=== PATIENT | female | born 1955 | race Caucasian/White ===

== ENCOUNTER → 2016-06-01 | Outpatient (CLI) | payer MEDICARE, MEDICAID ==
[~2016-06-01] MED LIST: ACET-789 PO; ASPI-999 PO; AZIT250T5; Antibiotic; CEFD300C3 PO; CEPH500C; CHOL200041 PO; CLOB20TA PO; Fish Oil PO; HYDR-3583 PO; LACO200T2 PO; LORA1TAB PO; NIAC500T24 PO; OXYC-12 PO; PHN100C PO; PRD10T; RT-ALBUINH; RT-ALBUINH IH; TRAM50TA2 PO; ZONI100C11 PO
--- OUTSIDE RECORDS SUMMARY | 2016-06-01 09:08 | XMS REPORT | Continuity of Care Document ---
Author Author [facility] Organization [facility] Address Unknown Phone Unavailable Allergies Active Description Code Type Severity Reaction Onset Reported/Identified Relationship to Patient Clinical Status Yes No Known Drug Allergies [id number] Drug Allergy Unknown N/ A 06/05/2010 Yes divalproex sodium Drug Allergy Moderate VOMITS 05/02/2013 Yes divalproex sodium [id number] Drug Allergy Unknown NAUSEA 05/04/2015 Medications Problems Date Dx Coded Attending Type Code Diagnosis Diagnosed By 02/24/2010 Ot 873.0 02/24/2010 Ot E000.8 02/24/2010 Ot E849.0 02/24/2010 Ot E917.4 02/24/2010 Ot V06.1 03/05/2010 Ot V58.32 06/07/2010 Ot 317 06/07/2010 Ot 345.90 06/07/2010 Ot 824.0 06/07/2010 Ot 837.0 06/07/2010 Ot 845.03 06/07/2010 Ot E849.0 06/07/2010 Ot E888.9 08/04/2010 Ot 780.39 08/04/2010 Ot V54.01 08/04/2010 Ot V58.69 11/10/2010 Ot V58.69 11/10/2010 Ot V58.83 07/31/2011 Ot 780.39 07/31/2011 Ot 910.0 07/31/2011 Ot 912.0 07/31/2011 Ot E000.8 07/31/2011 Ot E849.0 07/31/2011 Ot E888.9 09/28/2011 Ot 780.39 09/28/2011 Ot V58.69 03/20/2012 Ot 923.20 03/20/2012 Ot 959.4 03/20/2012 Ot E000.8 03/20/2012 Ot E849.0 03/20/2012 Ot E888.9 03/22/2012 Ot 729.5 03/22/2012 Ot 923.20 03/22/2012 Ot E000.8 03/22/2012 Ot E928.9 04/25/2013 ZOILA DILLONZEYNEP Ot 924.20 04/25/2013 ZOILA DILLON, ZEYNEP Tomlinson Ot 959.7 04/25/2013 ZOILA DILLON, ZEYNEP Tomlinson Ot E000.8 04/25/2013 ZOILA DILLONZEYNEP Ot E849.0 04/25/2013 ZOILA DILLONZEYNEP Ot E888.9 02/06/2014 JOHNATHAN DOTY, SOPHIA K Ot 780.39 02/06/2014 JOHNATHAN DOTY, SOPHIA K Ot V58.69 02/13/2014 JOHNATHAN DOTY, SOPHIA K Ot 780.39 02/13/2014 JOHNATHAN DOTY, SOPHIA K Ot V58.69 10/30/2014 JOHNATHAN DOTY, SOPHIA K Ot 345.41 11/03/2014 JOHNATHAN DOTY, SOPHIA K Ot 345.41 11/07/2014 JOHNATHAN DOTY, SOPHIA K Ot 345.41 11/07/2014 JOHNATHAN DOTY, SOPHIA K Ot 345.41 11/23/2014 GREG NIEVES, SASCHA K Ot 780.39 11/23/2014 GREG , SASCHA K Ot 923.10 11/23/2014 GREG , SASCHA K Ot 959.3 11/23/2014 GREG , SASCHA K Ot E000.8 11/23/2014 [place] , SASCHA K Ot E888.9 12/21/2014 KEITH DOTY, ADRIAN Wagner Ot 345.90 12/21/2014 ADRIAN PARKER MD Ot 873.0 12/21/2014 ADRIAN PARKER MD Ot E000.8 12/21/2014 ADRIAN PARKER MD Ot E849.0 12/21/2014 ADRIAN PARKER MD Ot E888.9 12/22/2014 TWAN SILVA APRN Ot 345.90 12/22/2014 TWAN SILVA COOK SHORT ORDER Ot 873.0 12/22/2014 TWAN SILVA COOK SHORT ORDER Ot E000.8 12/22/2014 TWAN SILVA COOK SHORT ORDER Ot E888.9 12/24/2014 MARY FISCHER DO Ot V76.12 12/30/2014 IOANA DOTY, LYLE Ngo Ot Z48.02 12/31/2014 MARY FISCHER DO Ot V76.12 03/24/2015 Ot V76.12 03/24/2015 Ot 553.3 03/24/2015 Ot 787.3 03/24/2015 Ot 824.0 03/24/2015 Ot E000.8 03/24/2015 Ot E849.0 03/24/2015 Ot E888.9 03/24/2015 Ot V72.83 03/24/2015 Ot V74.8 03/24/2015 Ot V58.69 03/24/2015 Ot V58.83 03/24/2015 Ot 780.39 03/24/2015 Ot 780.39 03/24/2015 Ot 780.39 03/24/2015 Ot V58.69 03/24/2015 Ot 345.91 03/24/2015 Ot 345.91 03/24/2015 Ot 959.2 03/24/2015 Ot E000.8 03/24/2015 Ot E849.0 03/24/2015 Ot E888.9 03/24/2015 Ot 345.90 03/24/2015 MARY FISCHER DO Ot 793.19 03/24/2015 HEMALATHALENDER MARY NIEVES Ot V72.83 03/24/2015 SOPHIA MANN MD Ot 780.39 03/24/2015 SOPHIA MANN MD Ot V58.69 03/24/2015 SOPHIA MANN MD Ot 345.41 03/24/2015 SOPHIA MANN MD Ot 345.41 03/24/2015 MARY FISCHER DO Ot V76.12 04/17/2015 GELLENDER DO, MARY Escobedo Ot S20.90XA 04/17/2015 GELLENDER DO, MARY Escobedo Ot W19.XXXA 04/17/2015 GELLENDER DO, MARY Escobedo Ot Y99.8 04/22/2015 GELLENDER DO, MARY Escobedo Ot S20.90XA 04/22/2015 GELLENDER DO, MARY Escobedo Ot W19.XXXA 04/22/2015 GELLENDER DO, MARY Escobedo Ot Y99.8 05/04/2015 Ot 780.39 05/04/2015 Ot V58.69 05/04/2015 ZEYNEP PETTIT Ot J18.9 05/04/2015 ZOILA DILLON ZEYNEP Tomlinson Ot M47.812 05/04/2015 ZOILA DILLON ZEYNEP Tomlinson Ot M50.32 05/04/2015 ZOILA DILLON ZEYNEP Tomlinson Ot S01.01XA 05/04/2015 ZOILA DILLON ZEYNEP Tomlinson Ot S40.012A 05/04/2015 ZOILA DILLON ZEYNEP Tomlinson Ot W01.0XXA 05/04/2015 ZOILA DILLON ZEYNEP Tomlinson Ot Y92.013 05/04/2015 ZOILA DILLON ZEYNEP Tomlinson Ot Y99.8 05/22/2015 MARY FISCHER DO Ot J18.9 06/04/2015 MARY FISCHER DO Ot J18.9 Procedures Code Description Performed By Performed On . IMPLANT OR REPLACEMENT OF PERIPHERAL NEUROSTIMULAT Rob Urias MD 05/03/2013 86.96 INSERT OR REPLACE OF OTH NEUROSTIMULATOR PULSE GEN Rob Urias MD 05/03/2013 Results Test Result Range URINALYSIS, ROUTINE - 05/03/13 07:48 UA LEUKOCYTE ESTERASE DIPSTICK NEGATIVE NEGATIVE UA NITRITE DIPSTICK NEGATIVE NEGATIVE UA PROTEIN DIPSTICK NEGATIVE NEGATIVE UA GLUCOSE DIPSTICK NEGATIVE NEGATIVE UA KETONE DIPSTICK NEGATIVE NEGATIVE UA UROBILINOGEN DIPSTICK NORMAL NORMAL UA BILIRUBIN DIPSTICK NEGATIVE NEGATIVE UA BLOOD DIPSTICK TRACE NEGATIVE UA BACTERIA 1+ NEGATIVE UA EPITHELIAL CELLS 2+ epi/hpf 0 - 1+ UA RBC 0-3 rbc/hpf 0 - 3 UA VOLUME FOR EXAM 12.0 mL (12mL STD) UA WBC 0-1 wbc/hpf 0 - 5 UA SPECIFIC GRAVITY 1.013 1.015-1.025 UR PH 6.5 5.0-7.0 Encounters ACCT No. Visit Date/Time Discharge Status Pt. Type Provider Facility Loc./Unit Complaint [id number] 05/03/2013 05:51:00 2013 13:45:00 DIS Outpatient Adonay DOTY, [facility] NABIL
[2016-06-01 09:19] LABS: MEAN PLATELET VOLUME 9.4 FL (7.4-10.4); RED BLOOD COUNT 4.9 10^6/uL (4.35-5.85); RED CELL DISTRIBUTION WIDTH 12.8 % (10.0-14.5); WHITE BLOOD COUNT 5.3 10^3/uL (4.3-11.0)
[2016-06-01 09:41] LABS: ALANINE AMINOTRANSFERASE 17 U/L (0-55); ALBUMIN 4.3 G/DL (3.2-4.5); ANION GAP 8 MMOL/L (5-14); ASPARTATE AMINO TRANSFERASE 20 U/L (5-34); BILIRUBIN,TOTAL 0.5 MG/DL (0.1-1.0); BLOOD UREA NITROGEN 6 MG/DL (7-18); BUN/CREATININE RATIO 8; CALCIUM 9.3 MG/DL (8.5-10.1); CARBON DIOXIDE 27 MMOL/L (21-32); CHLORIDE 101 MMOL/L (98-107); CREATININE SERUM 0.75 MG/DL (0.60-1.30); GFR ESTIMATED > 60; GLUCOSE 90 MG/DL (70-105); POTASSIUM 4.4 MMOL/L (3.6-5.0); SODIUM 136 MMOL/L (135-145); TOTAL PROTEIN 6.8 G/DL (6.4-8.2)
== END ==
LOC: LAB 09:03
PROVIDERS: ATTEND Psychiatry & Neurology Neurology
DX: R56.9 Unspecified convulsions (principal)
CPT/HCPCS: 36415; 80053; 85027

== ENCOUNTER → 2017-07-05 | Outpatient (CLI) | payer MEDICARE, MEDICAID ==
[~2017-07-05] MED LIST changes: +AZIT250T12; -AZIT250T5
[2017-07-05 09:00] LABS: HEMOGLOBIN 15.2 G/DL (11.5-16.0); MEAN PLATELET VOLUME 9.2 FL (7.4-10.4); RED BLOOD COUNT 4.81 10^6/uL (4.35-5.85); RED CELL DISTRIBUTION WIDTH 13.5 % (10.0-14.5); WHITE BLOOD COUNT 5.7 10^3/uL (4.3-11.0)
[2017-07-05 09:23] LABS: ALANINE AMINOTRANSFERASE 18 U/L (0-55); ALBUMIN 4.4 GM/DL (3.2-4.5); ALKALINE PHOSPHATASE 99 U/L (40-136); BILIRUBIN,TOTAL 0.5 MG/DL (0.1-1.0); BUN/CREATININE RATIO 15; CALCIUM 9.5 MG/DL (8.5-10.1); CARBON DIOXIDE 24 MMOL/L (21-32); CHLORIDE 100 MMOL/L (98-107); CREATININE SERUM 0.72 MG/DL (0.60-1.30); GFR ESTIMATED > 60; GLUCOSE 85 MG/DL (70-105); SODIUM 134 MMOL/L (135-145); TOTAL PROTEIN 6.8 GM/DL (6.4-8.2)
== END ==
LOC: LAB 08:43
PROVIDERS: ATTEND Psychiatry & Neurology Neurology
DX: R56.9 Unspecified convulsions (principal); Z79.899 Other long term (current) drug therapy
CPT/HCPCS: 36415; 80053; 85027

== ENCOUNTER 2017-12-23 23:16 | Inpatient (IN) | payer MEDICARE, MEDICAID ==
[~2017-12-23] VITALS: Ht 157.5 cm; Wt 68.9 kg
[2017-12-23] MEDS ORDERED: fentaNYL INJECTION 100 MCG/2 ML AMP IVP STA (23:29)
[2017-12-24] MEDS ORDERED: fentaNYL INJECTION 100 MCG/2 ML AMP IVP STA (00:10)
--- OUTSIDE RECORDS SUMMARY | 2017-12-24 00:50 | XMS REPORT ---
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 Name Role Phone AGUSTIN DODD Unavailable PROBLEMS Unknown Problems ALLERGIES Substance Reaction Event Type Date Status Depakote Unknown Drug Allergy Dec, Active ENCOUNTERS Encounter Location Date Diagnosis [facility] [address] [facility] [id number] [place], [place] [id number] Dec, Dental examination Z01.20 and Dental caries K02.9 IMMUNIZATIONS No Known Immunizations SOCIAL HISTORY Never Assessed REASON FOR VISIT madhav PLAN OF CARE Activity Details Follow Up prn Reason: VITAL SIGNS MEDICATIONS Medication Instructions Dosage Frequency Start Date End Date Duration Status Aspirin Active D3 Adult Active Fish Oil Active [id number] Active Aptiom Active Onfi Active RESULTS No Results PROCEDURES Procedure Date Ordered Result Body Site LTD ORAL EVALUATION - PROBLEM FOCUS Jan 24, 2017 PANORAMIC FILM SEE ALSO CODE 69108 Jan 24, 2017 EXTRAC ERUPTED TOOTH/EXPOSED ROOT Jan 24, 2017 INSTRUCTIONS MEDICATIONS ADMINISTERED No Known Medications MEDICAL (GENERAL) HISTORY Type Description Date Medical History Fainting, Seizures, Epilipsy Medical History Head, Neck, or Jaw injury Medical History Surgery requiring rods, pins, or screws Surgical History Implant 05/03/2013
--- OUTSIDE RECORDS SUMMARY | 2017-12-24 00:51 | XMS REPORT | Continuity of Care Document ---
Author Author [facility] Organization [facility] Address Unknown Phone Unavailable Allergies Active Description Code Type Severity Reaction Onset Reported/Identified Relationship to Patient Clinical Status Yes No Known Drug Allergies [id number] Drug Allergy Unknown N/A 06/05/2010 Yes divalproex sodium Drug Allergy Moderate VOMITS 05/02/2013 Yes divalproex sodium [id number] Drug Allergy Unknown NAUSEA 05/04/2015 Medications There is no data. Problems Date Dx Coded Attending Type Code Diagnosis Diagnosed By 02/24/2010 Ot 873.0 02/24/2010 Ot E000.8 02/24/2010 Ot E849.0 02/24/2010 Ot E917.4 02/24/2010 Ot V06.1 03/05/2010 Ot V58.32 06/07/2010 Ot 317 MILD MENTAL RETARDATION 06/07/2010 Ot 345.90 EPILEPSY UNSPEC W/O MENTION INTRACTABLE 06/07/2010 Ot 824.0 FX MEDIAL MALLEOLUS-CLOS 06/07/2010 Ot 837.0 DISLOCATION ANKLE-CLOSED 06/07/2010 Ot 845.03 SPRAIN DISTAL TIBIOFIBUL 06/07/2010 Ot E849.0 ACCIDENT IN HOME 06/07/2010 Ot E888.9 FALL NOS 08/04/2010 Ot 780.39 08/04/2010 Ot V54.01 08/04/2010 Ot V58.69 11/10/2010 Ot V58.69 11/10/2010 Ot V58.83 07/31/2011 Ot 780.39 OTHER CONVULSIONS 07/31/2011 Ot 910.0 ABRASION HEAD 07/31/2011 Ot 912.0 ABRASION SHOULDER/ARM 07/31/2011 Ot E000.8 OTHER EXTERNAL CAUSE STATUS 07/31/2011 Ot E849.0 ACCIDENT IN HOME 07/31/2011 Ot E888.9 FALL NOS 09/28/2011 Ot 780.39 OTHER CONVULSIONS 09/28/2011 Ot V58.69 OTH MED,LT, CURRENT USE 03/20/2012 Ot 923.20 CONTUSION OF HAND(S) 03/20/2012 Ot 959.4 HAND INJURY NOS 03/20/2012 Ot E000.8 OTHER EXTERNAL CAUSE STATUS 03/20/2012 Ot E849.0 ACCIDENT IN HOME 03/20/2012 Ot E888.9 FALL NOS 03/22/2012 Ot 729.5 PAIN IN LIMB 03/22/2012 Ot 923.20 CONTUSION OF HAND(S) 03/22/2012 Ot E000.8 OTHER EXTERNAL CAUSE STATUS 03/22/2012 Ot E928.9 ACCIDENT NOS 04/25/2013 ZEYNEP PETTIT Ot 924.20 CONTUSION OF FOOT 04/25/2013 ZEYNEP PETTIT Ot 959.7 LOWER LEG INJURY NOS 04/25/2013 ZEYNEP PETTIT Ot E000.8 OTHER EXTERNAL CAUSE STATUS 04/25/2013 ZEYNEP PETTIT Ot E849.0 ACCIDENT IN HOME 04/25/2013 ZEYNEP PETTIT Ot E888.9 FALL NOS 02/06/2014 SOPHIA MANN MD Ot 780.39 02/06/2014 SOPHIA MANN MD Ot V58.69 02/13/2014 SOPHIA MANN MD Ot 780.39 02/13/2014 SOPHIA MANN MD Ot V58.69 10/30/2014 SOPHIA MANN MD Ot 345.41 11/03/2014 SOPHIA MANN MD Ot 345.41 11/07/2014 SOPHIA MANN MD Ot 345.41 11/07/2014 SOPHIA MANN MD Ot 345.41 11/23/2014 SASCHA GARZA DO Ot 780.39 OTHER CONVULSIONS 11/23/2014 SASCHA GARZA DO Ot 923.10 CONTUSION OF FOREARM 11/23/2014 SASCHA GARZA DO Ot 959.3 ELB/FOREARM/WRST INJ NOS 11/23/2014 SASCHA GARZA DO Ot E000.8 OTHER EXTERNAL CAUSE STATUS 11/23/2014 SASCHA GARZA DO Ot E888.9 FALL NOS 12/21/2014 ADRIAN PARKER MD Ot 345.90 EPILEPSY UNSPEC W/O MENTION INTRACTABLE 12/21/2014 ADRIAN PARKER MD Ot 873.0 OPEN WOUND OF SCALP 12/21/2014 ADRIAN PARKER MD Ot E000.8 OTHER EXTERNAL CAUSE STATUS 12/21/2014 ADRIAN PARKER MD Ot E849.0 ACCIDENT IN HOME 12/21/2014 ADRIAN PARKER MD Ot E888.9 FALL NOS 12/22/2014 TWAN SILVA ROUSTABOUT HEAD Ot 345.90 EPILEPSY UNSPEC W/O MENTION INTRACTABLE 12/22/2014 TWAN SILVA ROUSTABOUT HEAD Ot 873.0 OPEN WOUND OF SCALP 12/22/2014 TWAN SILVA ROUSTABOUT HEAD Ot E000.8 OTHER EXTERNAL CAUSE STATUS 12/22/2014 TWAN SILVA ROUSTABOUT HEAD Ot E888.9 FALL NOS 12/24/2014 MARY FISCHER DO Ot V76.12 12/30/2014 IOANA DOTY, LYLE Ngo Ot Z48.02 ENCOUNTER FOR REMOVAL OF SUTURES 12/31/2014 MARY FISCHER DO Ot V76.12 03/24/2015 [...] 03/24/2015 MARY FISCHER DO Ot 793.19 03/24/2015 MARY FISCHER DO Ot V72.83 03/24/2015 SOPHIA MANN MD Ot 780.39 03/24/2015 SOPHIA MANN MD Ot V58.69 03/24/2015 JOHNATHAN DOTY, SOPHIA K Ot 345.41 03/24/2015 JOHNATHAN DOTY, SOPHIA Wagner Ot 345.41 03/24/2015 GELLENDER DO, MARY Escobedo Ot V76.12 04/17/2015 GELLENDER DO, MARY Escobedo Ot S20.90XA 04/17/2015 GELLENDER DO, MARY Escobedo Ot W19.XXXA 04/17/2015 GELLENDER DO, MARY Escobedo Ot Y99.8 04/22/2015 GELLENDER DO, MARY Escobedo Ot S20.90XA 04/22/2015 GELLENDER DO, MARY Escobedo Ot W19.XXXA 04/22/2015 GELLENDER DO, MARY Escobedo Ot Y99.8 05/04/2015 Ot 780.39 05/04/2015 Ot V58.69 05/04/2015 ZEYNEP PETTIT Ot J18.9 PNEUMONIA, UNSPECIFIED ORGANISM 05/04/2015 ZEYNEP PETTIT Ot M47.812 SPONDYLOSIS W/O MYELOPATHY OR RADICULOPA 05/04/2015 ZEYNEP PETTIT Ot M50.32 OTHER CERVICAL DISC DEGENERATION, MID-CE 05/04/2015 ZEYNEP PETTIT Ot S01.01XA LACERATION WITHOUT FOREIGN BODY OF SCALP 05/04/2015 ZEYNEP PETTIT Ot S40.012A CONTUSION OF LEFT SHOULDER, INITIAL ENCO 05/04/2015 ZEYNEP PETTIT Ot W01.0XXA FALL SAME LEV FROM SLIP/TRIP W/O STRIKE 05/04/2015 ZEYNEP PETTIT Ot Y92.013 BEDROOM OF SINGLE-FAMILY (PRIVATE) HOUSE 05/04/2015 ZEYNEP PETTIT Ot Y99.8 OTHER EXTERNAL CAUSE STATUS 05/10/2015 SASCHA GARZA DO Ot S01.01XD LACERATION WITHOUT FOREIGN BODY OF SCALP 05/22/2015 GELLENDER DO, MARY Escobedo Ot J18.9 06/04/2015 GELLENDER , MARY Escobedo Ot J18.9 06/01/2016 Ot 780.39 OTHER CONVULSIONS 06/01/2016 Ot 780.39 OTHER CONVULSIONS 06/01/2016 Ot 780.39 OTHER CONVULSIONS 06/01/2016 Ot V58.69 OT MED,LT, CURRENT USE 06/01/2016 Ot 345.91 EPILEPSY UNSPECIFIED W/ INTRACTABLE EPIL 06/01/2016 Ot 345.91 EPILEPSY UNSPECIFIED W/ INTRACTABLE EPIL 06/01/2016 Ot 959.2 SHLDR/UPPER ARM INJ NOS 06/01/2016 Ot E000.8 OTHER EXTERNAL CAUSE STATUS 06/01/2016 Ot E849.0 ACCIDENT IN HOME 06/01/2016 Ot E888.9 FALL NOS 06/01/2016 Ot 345.90 EPILEPSY UNSPEC W/O MENTION INTRACTABLE 06/01/2016 AALIYAH NIEVESMARY Ot 793.19 OTHER NONSPECIFIC ABNORMAL FINDING OF ELENA 06/01/2016 AALIYAH NIEVESMARY Ot V72.83 EXAM PRE-OPERATIVE NEC 06/01/2016 SOPHIA MANN MD Ot 780.39 OTHER CONVULSIONS 06/01/2016 SOPHIA MANN MD Ot V58.69 OTH MED,LT,CURRENT USE 06/01/2016 SOPHIA MANN MD Ot 345.41 FOC PART EPILEPSY/SYND W COMP PART SEIZU 06/01/2016 SOPHIA MANN MD Ot 345.41 FOC PART EPILEPSY/SYND W COMP PART SEIZU 06/01/2016 AALIYAH NIEVESMARY Ot V76.12 OTH SCREEN MAMMO-MALIGN NEOPLASM OF MARKO 06/01/2016 AALIYAH NIEVESMARY Ot S20.90XA UNSP SUPERFICIAL INJURY OF UNSP PARTS OF 06/01/2016 AALIYAH NIEVESMARY Ot W19.XXXA UNSPECIFIED FALL, INITIAL ENCOUNTER 06/01/2016 AALIYAH MARY NIEVES Ot Y99.8 OTHER EXTERNAL CAUSE STATUS 06/01/2016 AALIYAH NIEVESMARY Ot J18.9 PNEUMONIA, UNSPECIFIED ORGANISM 06/22/2016 SOPHIA MANN MD Ot R56.9 UNSPECIFIED CONVULSIONS 06/29/2016 SOPHIA MANN MD Ot R56.9 UNSPECIFIED CONVULSIONS 07/05/2017 Ot 959.2 SHLDR/UPPER ARM INJ NOS 07/05/2017 Ot E000.8 OTHER EXTERNAL CAUSE STATUS 07/05/2017 Ot E849.0 ACCIDENT IN HOME 07/05/2017 Ot E888.9 FALL NOS 07/05/2017 Ot 345.90 EPILEPSY UNSPEC W/O MENTION INTRACTABLE 07/05/2017 MARY FISCHER DO Ot 793.19 OTHER NONSPECIFIC ABNORMAL FINDING OF ELENA 07/05/2017 MARY FISCHER DO Ot V72.83 EXAM PRE-OPERATIVE NEC 07/05/2017 SOPHIA MANN MD Ot 780.39 OTHER CONVULSIONS 07/05/2017 SOPHIA MANN MD, Ot V58.69 OTH MED,LT,CURRENT USE 07/05/2017 SOPHIA MANN MD Ot 345.41 FOC PART EPILEPSY/SYND W COMP PART SEIZU 07/05/2017 SOPHIA MANN MD Ot 345.41 FOC PART EPILEPSY/SYND W COMP PART SEIZU 07/05/2017 MARY FISCHER DO Ot V76.12 OTH SCREEN MAMMO-MALIGN NEOPLASM OF MARKO 07/05/2017 MARY FISCHER DO Gregg Ot S20.90XA UNSP SUPERFICIAL INJURY OF UNSP PARTS OF 07/05/2017 MARY FISCHER DO Ot W19.XXXA UNSPECIFIED FALL, INITIAL ENCOUNTER 07/05/2017 MARY FISCHER DO Ot Y99.8 OTHER EXTERNAL CAUSE STATUS 07/05/2017 MARY FISCHER DO Ot J18.9 PNEUMONIA, UNSPECIFIED ORGANISM 07/05/2017 SOPHIA MANN MD Ot R56.9 UNSPECIFIED CONVULSIONS 07/06/2017 SOPHIA MANN MD Ot R56.9 UNSPECIFIED CONVULSIONS 07/06/2017 SOPHIA MANN MD Ot Z79.899 OTHER RETIREMENT (CURRENT) DRUG THERAPY 07/25/2017 SOPHIA MANN MD Ot R56.9 UNSPECIFIED CONVULSIONS 07/25/2017 SOPHIA MANN MD Ot Z79.899 OTHER RETIREMENT (CURRENT) DRUG THERAPY 08/02/2017 SOPHIA MANN MD Ot R56.9 UNSPECIFIED CONVULSIONS 08/02/2017 SOPHIA MANN MD Ot Z79.899 OTHER MANAGER ACQUISITION (CURRENT) DRUG THERAPY Procedures Code Description Performed By Performed On 79.06 CL FX REDUC-TIBIA/FIBULA 06/05/2010 79.36 OP RED-INT FIX TIB/FIBUL 06/06/2010 79.87 OPEN REDUC-ANKLE DISLOC 06/06/2010 04.92 IMPLANT OR REPLACEMENT OF PERIPHERAL NEUROSTIMULAT Adonay DOTY, Rob Calixto 86.96 INSERT OR REPLACE OF [facility] NEUROSTIMULATOR PULSE GEN Rob Urias MD 05/03/2013 [...] GRAVITY 1.013 1.015-1.025 UR PH 6.5 5.0-7.0 Automated blood complete blood count (hemogram) panel - 06/01/16 09:09 Blood leukocytes automated count (number/volume) 5.3 10*3/uL 4.3-11.0 Blood erythrocytes automated count (number/volume) 4.90 10*6/uL 4.35-5.85 Venous blood hemoglobin measurement (mass/volume) 15.5 g/dL 11.5-16.0 Blood hematocrit (volume fraction) 46 % 35-52 Automated erythrocyte mean corpuscular volume 94 [foz_us] 80-99 Automated erythrocyte mean corpuscular hemoglobin (mass per erythrocyte) 32 pg 25-34 Automated erythrocyte mean corpuscular hemoglobin concentration measurement ( mass/volume) 34 g/dL 32-36 Automated erythrocyte distribution width ratio 12.8 % 10.0-14.5 Automated blood platelet count (count/volume) 243 10*3/uL 130-400 Automated blood platelet mean volume measurement 9.4 [foz_us] 7.4-10.4 Comprehensive metabolic panel - 06/01/16 09:09 Serum or plasma sodium measurement (moles/volume) 136 mmol/L 135-145 Serum or plasma potassium measurement (moles/volume) 4.4 mmol/L 3.6-5.0 Serum or plasma chloride measurement (moles/volume) 101 mmol/L 98-107 Carbon dioxide 27 mmol/L 21-32 Serum or plasma anion gap determination (moles/volume) 8 mmol/L 5-14 Serum or plasma urea nitrogen measurement (mass/volume) 6 mg/dL 7-18 Serum or plasma creatinine measurement (mass/volume) 0.75 mg/dL 0.60-1.30 Serum or plasma urea nitrogen/creatinine mass ratio 8 NRG Serum or plasma creatinine measurement with calculation of estimated glomerular filtration rate > NRG Serum or plasma glucose measurement (mass/volume) 90 mg/dL 70-105 Serum or plasma calcium measurement (mass/volume) 9.3 mg/dL 8.5-10.1 Serum or plasma total bilirubin measurement (mass/volume) 0.5 mg/dL 0.1-1.0 Serum or plasma alkaline phosphatase measurement (enzymatic activity/volume) 94 U/L 40-136 Serum or plasma aspartate aminotransferase measurement (enzymatic activity/ volume) 20 U/L 5-34 Serum or plasma alanine aminotransferase measurement (enzymatic activity/volume ) 17 U/L 0-55 Serum or plasma protein measurement (mass/volume) 6.8 g/dL 6.4-8.2 Serum or plasma albumin measurement (mass/volume) 4.3 g/dL 3.2-4.5 Automated blood complete blood count (hemogram) panel - 07/05/17 08:57 Blood leukocytes automated count (number/volume) 5.7 10*3/uL 4.3-11.0 Blood erythrocytes automated count (number/volume) 4.81 10*6/uL 4.35-5.85 Venous blood hemoglobin measurement (mass/volume) 15.2 g/dL 11.5-16.0 Blood hematocrit (volume fraction) 45 % 35-52 Automated erythrocyte mean corpuscular volume 93 [foz_us] 80-99 Automated erythrocyte mean corpuscular hemoglobin (mass per erythrocyte) 32 pg 25-34 Automated erythrocyte mean corpuscular hemoglobin concentration measurement ( mass/volume) 34 g/dL 32-36 Automated erythrocyte distribution width ratio 13.5 % 10.0-14.5 Automated blood platelet count (count/volume) 248 10*3/uL 130-400 Automated blood platelet mean volume measurement 9.2 [foz_us] 7.4-10.4 Comprehensive metabolic panel - 07/05/17 08:57 Serum or plasma sodium measurement (moles/volume) 134 mmol/L 135-145 Serum or plasma potassium measurement (moles/volume) 4.0 mmol/L 3.6-5.0 Serum or plasma chloride measurement (moles/volume) 100 mmol/L 98-107 Carbon dioxide 24 mmol/L 21-32 Serum or plasma anion gap determination (moles/volume) 10 mmol/L 5-14 Serum or plasma urea nitrogen measurement (mass/volume) 11 mg/dL 7-18 Serum or plasma creatinine measurement (mass/volume) 0.72 mg/dL 0.60-1.30 Serum or plasma urea nitrogen/creatinine mass ratio 15 NRG Serum or plasma creatinine measurement with calculation of estimated glomerular filtration rate > NRG Serum or plasma glucose measurement (mass/volume) 85 mg/dL 70-105 Serum or plasma calcium measurement (mass/volume) 9.5 mg/dL 8.5-10.1 Serum or plasma total bilirubin measurement (mass/volume) 0.5 mg/dL 0.1-1.0 Serum or plasma alkaline phosphatase measurement (enzymatic activity/volume) 99 U/L 40-136 Serum or plasma aspartate aminotransferase measurement (enzymatic activity/ volume) 17 U/L 5-34 Serum or plasma alanine aminotransferase measurement (enzymatic activity/volume ) 18 U/L 0-55 Serum or plasma protein measurement (mass/volume) 6.8 g/dL 6.4-8.2 Serum or plasma albumin measurement (mass/volume) 4.4 g/dL 3.2-4.5 Encounters ACCT No. Visit Date/Time Discharge Status Pt. Type Provider Facility Loc./Unit Complaint [id number] 07/05/2017 08:43:00 07/05/2017 23:59:59 CLS Outpatient SOPHIA MANN MD [facility] LAB SEIZURE ON AED G40.80 [id number] 06/01/2016 09:03:00 06/01/2016 23:59:59 CLS Outpatient SOPHIA MANN MD [facility] LAB SEIZURE [id number] 05/11/2015 11:15:00 05/11/2015 23:59:59 CLS Outpatient MARY FISCHER DO [facility] RAD PNEUMONIA [id number] 05/10/2015 11:04:00 05/10/2015 11:18:00 DIS Emergency SASCHA GARZA DO [facility] ER SUTURE REMOVAL [id number] 05/04/2015 17:33:00 05/04/2015 23:59:59 CLS Emergency ZOILA DILLON ZEYNEP Tomlinson [facility] ER HEAD PAIN [id number] 03/24/2015 15:15:00 03/24/2015 23:59:59 CLS Outpatient MARY FISCHER DO [facility] RAD FELL [id number] 12/30/2014 10:19:00 12/30/2014 10:56:00 DIS Emergency LYLE TRIPLETT MD [facility] ER STAPLE REMOVAL [id number] 12/22/2014 15:03:00 12/22/2014 16:09:00 DIS Emergency TWAN SILVA APRN [facility] ER FALL/HEAD LAC [id number] 12/21/2014 15:37:00 12/21/2014 16:37:00 DIS Emergency ADRIAN PARKER MD [facility] ER FELL HIT BACK OF HEAD ON GROUND [id number] 12/02/2014 12:46:00 12/02/2014 23:59:59 CLS Outpatient MARY FISCHER DO [facility] RAD SCREENING [id number] 11/23/2014 16:01:00 11/23/2014 19:17:00 DIS Emergency SASCHA GARZA DO [facility] ER PT FELL/RIGHT ARM SWOLLEN [id number] 10/10/2014 09:00:00 10/10/2014 23:59:59 CLS Outpatient SOPHIA MNAN MD [facility] RT SEIZURES [id number] 10/06/2014 07:04:00 10/06/2014 23:59:59 CLS Outpatient SOPHIA MANN MD [facility] LAB SEIZURE [id number] 01/14/2014 07:10:00 01/14/2014 23:59:59 CLS Outpatient SOPHIA MANN MD [facility] LAB SEIZURE,DM,AEDS [id number] 04/26/2013 09:47:00 04/26/2013 23:59:59 CLS Outpatient MARY FISCHER DO [facility] RAD PRE-OP [id number] 04/25/2013 21:47:00 04/25/2013 22:46:00 DIS Emergency ZEYNEP PETTIT [facility] ER R FOOT PAIN; FELL AT HOME 04/25/13 [id number] 03/22/2012 08:43:00 Document Registration [id number] 03/20/2012 11:28:00 Document Registration [id number] 02/08/2012 07:48:00 Document Registration [id number] 02/01/2012 10:10:00 Document Registration [id number] 12/07/2011 09:06:00 Document Registration [id number] 12/06/2011 09:33:00 Document Registration [id number] 09/29/2011 00:00:00 Document Registration [id number] 09/12/2011 10:15:00 Document Registration [id number] 08/25/2011 08:11:00 Document Registration [id number] 07/31/2011 21:37:00 Document Registration [id number] 06/30/2011 08:43:00 Document Registration [id number] 10/14/2010 08:22:00 Document Registration [id number] 08/06/2010 07:27:00 Document Registration [id number] 08/04/2010 05:35:00 Document Registration [id number] 07/28/2010 08:39:00 Document Registration [id number] 06/05/2010 17:07:00 Document Registration [id number] 03/05/2010 09:50:00 Document Registration [id number] 03/04/2010 07:58:00 Document Registration [id number] 02/24/2010 21:45:00 Document Registration [id number] 10/15/2009 08:54:00 Document Registration [id number] 05/03/2013 05:51:00 05/03/2013 13:45:00 DIS Outpatient Adonay DOTY, [facility] NABIL [email or web address] 12/30/2014 14:29:56 ACT Document Registration
[2017-12-24] MEDS: D5 1/2 NS W/KCL 20 MEQ/L 1,000 ML IV SCH ×2 (01:17→09:33)
[2017-12-24 01:26] LABS: BASOPHILS % (AUTO) 0 % (0-10); EOSINOPHILS # (AUTO) 0.1 10^3/uL (0.0-0.3); EOSINOPHILS % (AUTO) 1 % (0-10); HEMATOCRIT 42 % (35-52); HEMOGLOBIN 14.6 G/DL (11.5-16.0); LYMPHOCYTES # (AUTO) 1.3 X 10^3 (1.0-4.0); LYMPHOCYTES % (AUTO) 11 % (12-44); MEAN CORPUSCULAR HEMOGLOBIN 33 PG (25-34); MEAN CORPUSCULAR HGB CONC 35 G/DL (32-36); MEAN CORPUSCULAR VOLUME 93 FL (80-99); MEAN PLATELET VOLUME 9.3 FL (7.4-10.4); MONOCYTES % (AUTO) 9 % (0-12); NEUTROPHILS % (AUTO) 79 % (42-75); PLATELET COUNT 240 10^3/uL (130-400); RED BLOOD COUNT 4.48 10^6/uL (4.35-5.85); RED CELL DISTRIBUTION WIDTH 13.1 % (10.0-14.5); WHITE BLOOD COUNT 11.5 10^3/uL (4.3-11.0)
[2017-12-24 01:41] LABS: ALANINE AMINOTRANSFERASE 14 U/L (0-55); ALBUMIN 4.4 GM/DL (3.2-4.5); ALKALINE PHOSPHATASE 94 U/L (40-136); BILIRUBIN,TOTAL 0.4 MG/DL (0.1-1.0); BUN/CREATININE RATIO 11; CALCIUM 9.4 MG/DL (8.5-10.1); CARBON DIOXIDE 20 MMOL/L (21-32); CHLORIDE 99 MMOL/L (98-107); GFR ESTIMATED > 60; GLUCOSE 106 MG/DL (70-105); POTASSIUM 4.6 MMOL/L (3.6-5.0); SODIUM 131 MMOL/L (135-145); TOTAL PROTEIN 7.2 GM/DL (6.4-8.2)
[2017-12-24 02:23] LABS: INR 1.1 (0.8-1.4); PROTHROMBIN TIME PATIENT 14.5 SEC (12.2-14.7)
[2017-12-24] MEDS ORDERED: LORazepam INJ 2 MG/ML (ATIVAN) VIAL IV PRN (03:45)
[2017-12-24] MEDS ORDERED: fentaNYL INJECTION 100 MCG/2 ML AMP IV PRN (03:45)
[2017-12-24] MEDS: D5 1/2 NS 1000 ML IV SOLUTION 1,000 ML IV SCH ×2 (04:47→08:05)
[2017-12-24] MEDS ORDERED: FISH1CAP15 PO (04:55)
[2017-12-24] MEDS ORDERED: ESLI400T PO (04:55)
[2017-12-24] MEDS ORDERED: CLOB20TA PO ×2 (04:55)
[2017-12-24] MEDS ORDERED: ASPI-999 PO (04:55)
[2017-12-24] MEDS ORDERED: CYAN250010 PO (04:55)
[2017-12-24] MEDS ORDERED: MAGN250T13 PO (04:55)
--- NOTE | 2017-12-24 07:04 | Diagnostic Imaging Report ---
Indication: Pain after fall. Findings: There is an oblique fracture through the distal fibular diaphysis a few centimeters above the ankle mortise. There is a transverse fracture through medial malleolus. There is a vertical fracture through the posterior malleolus. Talar domes dislocated laterally. Impression: Trimalleolar fracture dislocation as described. Dictated by: Dictated on workstation # [id number]
--- NOTE | 2017-12-24 07:04 | Diagnostic Imaging Report ---
EXAMINATION: Right tibia and fibula, 2 views, 3 images. COMPARISON: None. HISTORY: 62-year-old female, fall. Right ankle pain. FINDINGS: There is a displaced and abnormally angulated fracture of the distal fibular diaphysis which is at least extending above the level of the tibial plafond. There is a significantly displaced posterior malleolar fracture. There is loss of normal alignment of the distal tibia relative to the talus. There is a significantly displaced fracture involving the medial malleolus. There is no additional more proximal fracture of the tibia or fibula identified. IMPRESSION: 1. Significantly displaced distal fibular diaphyseal fracture above the level of the tibial plafond. 2. Significantly displaced posterior malleolar and medial malleolar fractures. 3. Loss of normal alignment of the distal tibia relative to the talus. 4. No identified more proximal fracture of the tibia or fibula. Dictated by: Dictated on workstation # [id number]
[2017-12-24 08:43] VITALS: BP 118/55
--- NOTE | 2017-12-24 09:21 | Diagnostic Imaging Report ---
Indication: Trimalleolar fracture. Findings: There is mild cardiomegaly. Mediastinum is unremarkable. There is no pleural effusion, pneumothorax or pneumonia. Impression: No acute cardiopulmonary abnormality. Cardiomegaly. Dictated by: Dictated on workstation # [id number]
[2017-12-24] MEDS ORDERED: LACTATED RINGERS 1,000 ML IV PRN (09:30)
[2017-12-24] MEDS ORDERED: DEXAMETHASONE 10 MG/ML (DECADRON) 1 ML VIAL ONE (09:46)
[2017-12-24] MEDS ORDERED: ONDANSETRON 4 MG/2 ML (SDV) Z0FRAN ONE ×2 (09:46→11:08)
[2017-12-24] MEDS ORDERED: SUCCINYLCHOLINE INJ 100 MG/5 ML SYR ONE (09:46)
[2017-12-24] MEDS ORDERED: ROCURONIUM 10 MG/ML 5 ML SYRINGE IV ONE (09:46)
[2017-12-24] MEDS ORDERED: LIDOCAINE PF 2% 2 ML (XYLOCAINE) VIAL ONE (09:46)
[2017-12-24] MEDS ORDERED: proPOfol 200 MG/20 ML (DIPRIVAN) VIAL IV ONE (09:46)
[2017-12-24] MEDS ORDERED: SEVOFLURANE (ULTANE) 15 ML INHAL SOLN ONE ×2 (09:46→12:26)
[2017-12-24] MEDS ORDERED: MIDAZOLAM 2 MG/2 ML (VERSED) VIAL ONE (09:47)
[2017-12-24] MEDS ORDERED: fentaNYL INJECTION 100 MCG/2 ML AMP ONE (09:47)
--- NOTE | 2017-12-24 09:58 | History & Physicial ---
History of Present Illness History of Present Illness Reason for visit/HPI 62 yr old WF fell last night after she twisted her ankle. Immediate pain and deformity. Denies prior trauma. Denies CP/SOB/N/V. Not on blood thinners. Denies numbness or tingling. Date of Admission Dec 24, 2017 at 00:01 Date Seen by a Provider: Dec 24, 2017 Time Seen by a Provider: 09:55 I consulted on this patient on 12/24/17 09:54 Attending Physician Corrian Guerrier DO Admitting Physician Jona Reddy DO Consult Allergies and Home Medications Allergies Coded Allergies: divalproex sodium (Verified Allergy, Unknown, NAUSEA, 05/04/15) felbamate (Verified Allergy, Unknown, 12/24/17) topiramate (Verified Allergy, Unknown, 12/24/17) Home Medications Albuterol Sulfate 8.5 Gm Hfa.aer.ad, 2 PUFF IH Q6H PRN for SHORTNESS OF BREATH Prescribed by: ZEYNEP CUMMINGS on 05/04/152123 Aspirin 81 Mg Tab.chew, 81 MG PO DAILY, (Reported) Clobazam 20 Mg Tablet, 20 MG PO 0700, (Reported) Clobazam 20 Mg Tablet, 20 MG PO HS, (Reported) Cyanocobalamin (Vitamin B-12) 2,500 Mcg Tablet, 2,500 MCG PO DAILY, (Reported) Eslicarbazepine Acetate 400 Mg Tablet, 400 MG PO HS, (Reported) Fish Oil/Dha/Epa 1 Each Capsule, 1 EACH PO DAILY, (Reported) Lorazepam 1 Mg Tablet, 1 MG PO PRN, (Reported) Magnesium Oxide 250 Mg Tablet, 250 MG PO DAILY, (Reported) Patient Home Medication List Home Medication List Reviewed: Yes Past Qkkoxcu-Ikcvgn-Hjsjtg Hx Patient Social History Alcohol Use: Denies Use Recreational Drug Use: No Smoking Status: Never a Smoker 2nd Hand Smoke Exposure: No Physical Abuse Screen: No Sexual Abuse: No Recent Foreign Travel: Yes Contact w/other who traveled: No Recent Infectious Disease Expo: No Immunizations Up To Date Tetanus Booster (TDap): Less than 5yrs Date of Pneumonia Vaccine: Nov 25, 2016 Date of Influenza Vaccine: Nov 25, 2017 Seasonal Allergies Seasonal Allergies: No Surgeries Yes (left lumpectomy fx clavicle and arm as child, right foot) Breast, Orthopedic Respiratory No Cardiovascular No Neurological Yes (MR) Seizure Disorder Reproductive System Hx 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 Genitourinary No Gastrointestinal No Musculoskeletal No Endocrine History of Endocrine Disorders: No HEENT History of HEENT Disorders: No Cancer No Psychosocial History of Psychiatric Problem: Yes (MR) Integumentary History of Skin or Integumenta: No Blood Transfusions History of Blood Disorders: No Adverse Reaction to a Blood Tr: No Family Medical History Significant Family History: No Pertinent Family Hx Review of Systems Constitutional: no symptoms reported Physical Exam Vital Signs Vital Signs - First Documented 12/23/17 12/24/17 23:16 03:09 Temp 97.4 Pulse 69 Resp 12 B/P (MAP) 117/63 (81) Pulse Ox 96 O2 Delivery Room Air O2 Flow Rate 2.00 Capillary Refill : Less Than 3 SecondsLess Than 3 Seconds Height, Weight, BMI Height: 5'2.00" Weight: 152lbs. 0.0oz. 68.724590nh; 27.8 BMI Method:Stated General Appearance: No Apparent Distress Extremity: Other (R ankle: bandage in place, moves all toes on command, SILT all dermatomes) Assessment/Plan Assessment and Plan ASSESSMENT: R ankle trimalleolar fracture/dislocation PLAN: STAT CT scan ORIF R ankle this AM post op aspirin and NWB Admission Diagnosis Admission Status: Observation Clinical Quality Measures DVT/VTE Risk/Contraindication: Risk Factor Score Per Nursin RFS Level Per Nursing on Admit: 4+=Very High CORRINA GUERRIER DO Dec 24, 2017 09:58
[2017-12-24] MEDS ORDERED: ceFAZolin 1,000 MG/10 ML (ANCEF) VIAL ONE (10:20)
--- NOTE | 2017-12-24 10:33 | Diagnostic Imaging Report ---
PROCEDURE: CT right ankle without contrast. TECHNIQUE: Axially acquired CT was obtained through the right ankle without intravenous contrast. Coronal and sagittal reformations were also performed. DATE: December 24, 2017. INDICATION: 62-year-old female, right ankle fracture. COMPARISON: Radiograph December 23, 2017. FINDINGS: There is a comminuted significantly displaced distal fibular fracture extending obliquely upwards from the level of the tibial plafond. There is anterior to posterior splaying of fracture fragments up to approximately 1.9 cm measured on axial image 144. There is a fracture fragment on axial image 147 which measures 10 x 8mm in size which likely relates to a comminuted displaced distal fibular fracture fragment. There is a comminuted fracture of the distal tibia involving the posterior malleolus and base of the medial malleolus. The posterior malleolar fracture is displaced posteriorly by up to approximately 13 mm and is displaced laterally by up to approximately 9 mm. There is displacement of the medial malleolar distal fracture fragment laterally by up to 15 mm measured on coronal image 52. There is an os navicularis. There is a nondisplaced fracture involving the proximal aspect of the third metatarsal seen on coronal image 21. The distal tibial fracture fragments do extend near the tibialis posterior tendon. There is no tendon entrapment. The primary portion of the distal tibia is anteriorly dislocated relative to the talus. There is no subtalar subluxation or dislocation. Impression: 1. Comminuted displaced distal fibular fracture extending upwards from the level of the tibial plafond. 2. Comminuted displaced distal tibial fracture involving the posterior malleolus and medial malleolus as above. 3. The distal tibia is anteriorly dislocated relative to the talus. 4. Nondisplaced fracture involving the proximal aspect of the third metatarsal. Dictated by: Dictated on workstation # [id number]
[2017-12-24] MEDS ORDERED: morphine INJ 10 MG/ML 1ML (SYR OR VIAL) ONE (11:08)
[2017-12-24] MEDS ORDERED: GLYCOPYRROLATE 0.2 MG/ML (ROBINUL) 2 ML VIAL ONE (12:23)
[2017-12-24] MEDS ORDERED: NEOSTIGMINE 1 MG/ML 5 ML SYRINGE ONE (12:23)
--- NOTE | 2017-12-24 13:00 | Diagnostic Imaging Report ---
Fluoroscopy. Indication: Ankle pain. Fluoroscopic assistance was provided for Dr. Guerrier. 50.2 seconds of fluoroscopy time was utilized. 3 spot films of the right ankle were received from the OR. There is an orthopedic plate and screw fixation device securing a fracture of the distal fibula. The orthopedic hardware appears to be in good position. There are also 2 orthopedic fixation screws obliquely traversing the fracture of the medial malleolus. These too seem to be in good position. Skin ovidio are also evident over the medial malleolus. Impression: There is a metallic fork-like density overlying the distal tibia. This cannot be identified on the other projections. Impression: Fluoroscopic assistance was provided for Dr. Guerrier. Dictated by: Dictated on workstation # [id number]
[2017-12-24] MEDS ORDERED: LORazepam 1 MG (ATIVAN) TAB PO SCH (13:15)
[2017-12-24] MEDS ORDERED: RT-ALBUTEROL SULF 2.5 MG/3 ML PRE-MIX VIAL IH PRN (13:15)
[2017-12-24] MEDS ORDERED: ONDANSETRON 4 MG/2 ML (SDV) Z0FRAN IV PRN (13:15)
[2017-12-24] MEDS ORDERED: HYDROcodone/APAP 10 MG/325 MG (LORTAB) TAB PO PRN (13:15)
[2017-12-24] MEDS ORDERED: ASPI325T32 PO (13:17)
[2017-12-24] MEDS ORDERED: HYDR-3820 PO (13:17)
--- NOTE | 2017-12-24 13:22 | Discharge Inst-Simple/Standard ---
Discharge Inst-Standard Discharge Medications New, Converted or Re-Newed RX: RX on Chart Patient Instructions/Follow Up Plan of Care/Instructions/FU: non weight bearing to the rle follow up in clinic in [address] vergara, call for appt [phone] Activity as Tolerated: No Discharge Diet: Regular Diet Return to The Hospital For: increaed pain, numbness, tingling, cold or blue foot fever, chills shortness of breath chest pain LYLE RODRIGUEZ Dec 24, 2017 13:22
[2017-12-24] MEDS ORDERED: morphine INJ 10 MG/ML 1ML (SYR OR VIAL) IVP ONE ×2 (13:30)
[2017-12-24] MEDS ORDERED: ONDANSETRON 4 MG/2 ML (SDV) Z0FRAN IVP PRN ×2 (13:30)
[2017-12-24 14:05] VITALS: BP 126/55
[2017-12-24 15:26] VITALS: BP 122/57
[2017-12-24 16:40] VITALS: BP 122/57
[2017-12-24] MEDS ORDERED: ceFAZolin INJECTION 1,000 MG in NS (IVPB) 50 ML IV SCH (18:00)
--- NOTE | 2017-12-24 20:14 | OPERATIVE REPORT ---
DATE OF SERVICE: 12/24/2017 SURGEON: Corrina Guerrier DO MACHINE FEEDER: SANTANA This is a medically necessary procedure. Assistance was necessary for retraction of vital neurovascular structures. Without an industrial hire sales assistant, the procedure would not be possible. PREOPERATIVE DIAGNOSIS: Trimalleolar ankle fracture dislocation closed. POSTOPERATIVE DIAGNOSIS: Trimalleolar ankle fracture dislocation closed. PROCEDURE PERFORMED: An open reduction and internal fixation of right ankle. COMPLICATIONS: None. SPECIMEN SENT: None. ESTIMATED BLOOD LOSS: Minimal. ANESTHESIA: General endotracheal tube anesthesia. HISTORY OF PRESENT ILLNESS: The patient is a very pleasant 62-year-old female, who presented to me after twisting her ankle falling to the floor and experiencing severe pain and inability to bear weight. She presented to [facility] where she underwent x-rays demonstrating a fracture dislocation. Fracture involves the posterior malleolus, the medial malleolus as well as the distal fibula. Orthopedics was consulted at this time and she was made n.p.o. for surgery. DESCRIPTION OF PROCEDURE: The patient was identified by name on wrist band in the preoperative holding area. Her operative site was signed, consent was signed. SCDs were placed. Antibiotics were started. She was taken to the operating room theater and placed under general endotracheal tube anesthesia and transferred to the operating room table in the supine position. She was prepped and draped in usual sterile fashion. Formal timeout was conducted. At this point, a tourniquet was placed in the right thigh and the Esmarch was used for exsanguination. This of course took place after a formal timeout. I inflated the tourniquet to mmHg. At this point, I made a longitudinal incision over the distal fibula identifying the fracture site. I stripped the periosteum from the fracture edges and reduced the fracture as best I could. I placed two lag screws in the posterior to anterior orientation lagging that fracture together. I then obtained a distal fibular Synthes periarticular locking plate and situated that over the distal fibula. Under the guidance of AP and lateral x-ray, I then placed the appropriate screws securing that plate to the distal fibula. I ensured that I had reduced the rotation and the length of the fibula. At this point, I turned my attention to the medial aspect. I made a longitudinal incision over the anterior aspect of the medial malleolus where I identified the fracture fragment. Once again, I irrigated all of the hematoma out, stripped the periosteum from the edges of the fracture and reduce that fracture as best I could. I placed 2 parallel K wires across the fracture. AP and lateral x-ray demonstrated acceptable alignment of that fragment with the tibial plafond. Therefore, I placed cannulated screws across those wires lagging the medial malleolus fracture to the distal tibia. The posterior malleolus fracture was small and the ankle joint had been reduced with my fixation of the malleolar fragments. Therefore, I irrigated the wounds thoroughly. Obtained final AP and lateral x-rays and I closed the wound in the usual layered fashion utilizing 0 Vicryl followed by 2-0 Vicryl followed by 3-0 nylon stitches. I applied dressings and I then applied a sugar tong and a posterior splint. I overwrapped that with Claudio wrap. We took the patient in the supine position to the PACU where she awoke without incident. She tolerated the procedure well. Our plan at this time is to have the patient be nonweightbearing. She will be on aspirin 325 mg b.i.d. for 3 weeks. We will get a prescription for a rolling walker and she will be discharged home today. I will see the patient back in 2 weeks. Job ID: [id number] DocumentID: [id number] Dictated Date: 12/24/2017 17:01:45 Tool Procurement Coordinator Date: 12/24/2017 20:13:54 Dictated By: CORRINA GUERRIER DO
[2017-12-24] MEDS ORDERED: ASPIRIN E.C. 325 MG (ECOTRIN) TABLET PO SCH (21:00)
[2017-12-24] MEDS ORDERED: ESLICARBAZEPINE ACETATE 400 MG PO SCH (21:00)
[2017-12-24] MEDS ORDERED: CLOBAZAM 20 MG PO SCH (21:00)
[2017-12-25] MEDS ORDERED: CYANOCOBALAMIN 1,000 MCG (VITAMIN B-12) TABLET PO SCH (07:00)
[2017-12-25] MEDS ORDERED: CLOBAZAM 20 MG PO SCH (07:00)
[2017-12-25] MEDS ORDERED: OMEGA 3 (FISH OIL) 1000 MG CAP PO SCH (09:00)
[2017-12-25] MEDS ORDERED: NON-FORMULARY MEDICATION 1 EA EA (Magnesium Oxide (Magnesium) 250 MG) PO SCH (09:00)
--- NOTE | 2017-12-25 14:24 | Anesthesia-General Post-Op ---
General Patient Condition Mental Status/LOC: Same as Preop Cardiovascular: Satisfactory Nausea/Vomiting: Absent Respiratory: Satisfactory Pain: Controlled Complications: Absent Post Op Complications Complications None Follow Up Care/Instructions Patient Instructions None needed. Anesthesia/Patient Condition Patient Condition Patient is already discharged to home. No complications noted per RN. LAUREN WINTERS DO Dec 25, 2017 14:24
== END 2017-12-24 16:40 | disposition home or self-care (01) | DRG 494 ==
LOC: EDUNIT# 23:16 → ER 23:17 → 4TH 12-24 00:01
PROVIDERS: ADMIT Orthopaedic Surgery; ATTEND Orthopaedic Surgery
PROC: 0QSJ04Z Reposition Right Fibula with Internal Fixation Device, Open Approach (ICD-10-PCS; principal; 2017-12-24 10:20)
DX: S82.851A Displaced trimalleolar fracture of right lower leg, initial encounter for closed fracture (principal); F79 Unspecified intellectual disabilities; G40.909 Epilepsy, unspecified, not intractable, without status epilepticus; X50.1XXA Overexertion from prolonged static or awkward postures, initial encounter; W18.39XA Other fall on same level, initial encounter
CPT/HCPCS: 36415; 51702; 71045; 73590; 73610; 73700; 80053; 85025; 85610; 85730; 86850; 86900; 86901; 87081; 94760

== ENCOUNTER → 2018-02-01 | Outpatient (CLI) | payer MEDICARE, MEDICAID ==
[~2018-02-01] MED LIST changes: +ASPI325T32 PO; +CYAN250010 PO; +ESLI400T PO; +FISH1CAP15 PO; +HYDR-3820 PO; +MAGN250T13 PO
--- NOTE | 2018-02-01 14:29 | Diagnostic Imaging Report ---
DEXA scan. Indication: Screening for osteoporosis. There are no prior studies available for comparison. The bone mineral density of the hips and spine was measured. The T score for the spine is -1.7. The right hip is -1.7. The T score for the left hip is -1.9. All these values fall within the range of osteopenia. Impression: There is osteopenia of the hips and spine. Dictated by: Dictated on workstation # [id number]
--- NOTE | 2018-02-01 18:05 | Diagnostic Imaging Report ---
INDICATION: Routine screening. Comparison is made with prior mammogram from 12/02/2014. 2-D and 3-D bilateral screening mammography was performed with computer-aided detection (CAD) system. FINDINGS: Both breasts remain heterogeneously dense, limiting the sensitivity of mammography. Benign-appearing parenchymal and vascular calcifications are identified bilaterally. No mass or malignant-appearing microcalcifications are seen. The axillae are unremarkable. IMPRESSION: No mammographic features suspicious for malignancy are identified. ACR BI-RADS Category 2: Benign findings. Result letter will be mailed to the patient. Note: At least 10% of breast cancer is not imaged by mammography. Dictated by: Dictated on workstation # [id number]
== END ==
LOC: RAD 09:59
PROVIDERS: ATTEND Family Medicine
DX: Z12.31 Encounter for screening mammogram for malignant neoplasm of breast (principal); Z13.820 Encounter for screening for osteoporosis; M85.89 Other specified disorders of bone density and structure, multiple sites
CPT/HCPCS: 77067; 77080

== ENCOUNTER 2018-04-26 12:57 | Outpatient (RCR) | payer MEDICARE, MEDICAID | END 2018-04-26 14:14 | disposition home or self-care (01) | PROVIDERS: ATTEND Physician Assistant | DX: S82.851D Displaced trimalleolar fracture of right lower leg, subsequent encounter for closed fracture with routine healing (principal); W19.XXXD Unspecified fall, subsequent encounter ==

== ENCOUNTER → 2019-02-05 | Outpatient (CLI) | payer MEDICARE, MEDICAID ==
--- NOTE | 2019-02-05 12:54 | Diagnostic Imaging Report ---
INDICATION: Routine screening. COMPARISON: Comparison is made with prior mammograms from 02/01/2018 and 12/02/2014. 2-D and 3-D bilateral screening mammography was performed. The current study was also evaluated with a Computer Aided Detection (CAD) system. 3-D tomosynthesis was also performed and reviewed. Both breasts are heterogeneously dense, limiting the sensitivity of mammography. Vascular and benign calcifications again noted. Parenchymal pattern is stable. No mass or malignant-appearing microcalcifications are seen. Axillae are unremarkable. IMPRESSION: No mammographic features suspicious for malignancy are identified. ACR BI-RADS Category 2: Benign findings. Result letter will be mailed to the patient. Note: At least 10% of breast cancer is not imaged by mammography. Dictated by: Dictated on workstation # [id number]
== END ==
LOC: RAD 09:24
PROVIDERS: ATTEND Family Medicine
DX: Z12.31 Encounter for screening mammogram for malignant neoplasm of breast (principal)
CPT/HCPCS: 77067

== ENCOUNTER 2019-02-19 16:31 | Emergency (ER) | payer MEDICARE, MEDICAID ==
[~2019-02-19] VITALS: Ht 157.5 cm; Wt 70.5 kg
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
[2019-02-19 17:36] VITALS: BP 141/88
== END 2019-02-19 17:36 | disposition home or self-care (01) ==
LOC: EDUNIT# 16:31 → ER 16:32
DX: S09.90XA Unspecified injury of head, initial encounter (principal); G40.909 Epilepsy, unspecified, not intractable, without status epilepticus; F79 Unspecified intellectual disabilities; Z79.82 Long term (current) use of aspirin; Z88.8 Allergy status to other drugs, medicaments and biological substances; W01.198A Fall on same level from slipping, tripping and stumbling with subsequent striking against other object, initial encounter; Y92.531 Health care provider office as the place of occurrence of the external cause
CPT/HCPCS: 99282

== ENCOUNTER → 2020-02-07 | Outpatient (CLI) | payer MEDICARE, MEDICAID ==
[~2020-02-07] MED LIST changes: +ACHYD1T PO; -HYDR-3820 PO
--- NOTE | 2020-02-07 11:33 | Diagnostic Imaging Report ---
INDICATION: Routine screening. Comparison is made with prior mammogram 02/05/2019 and 02/01/2018. 2-D and 3-D bilateral screening mammography was performed with CAD. Both breasts are heterogeneously dense, limiting the sensitivity of mammography. Parenchymal pattern is stable. No mass or malignant appearing microcalcifications are seen. Axillae are unremarkable. IMPRESSION: BI-RADS Category 1 No mammographic features suspicious for malignancy are identified. ACR BI-RADS Category 1: Negative. Result letter will be mailed to the patient. Note: At least 10% of breast cancer is not imaged by mammography. Dictated by: Dictated on workstation # [id number]
== END ==
LOC: RAD 09:15
PROVIDERS: ATTEND Family Medicine
DX: Z12.31 Encounter for screening mammogram for malignant neoplasm of breast (principal)
CPT/HCPCS: 77063; 77067

== ENCOUNTER → 2020-07-30 | Outpatient (CLI) | payer MEDICARE, MEDICAID | LOC: LABNPT 08:53 | PROVIDERS: ATTEND Family Medicine | DX: U07.1 COVID-19 (principal) | CPT/HCPCS: 87635 ==

== ENCOUNTER 2021-04-03 18:13 | Emergency (ER) | payer MEDICARE, MEDICAID ==
[~2021-04-03] VITALS: Ht 157 cm; Wt 72.0 kg
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
[2021-04-03 19:38] LABS: BASOPHILS # (AUTO) 0.1 10^3/uL (0.0-0.1); BASOPHILS % (AUTO) 0 % (0-10); EOSINOPHILS # (AUTO) 0.1 10^3/uL (0.0-0.3); EOSINOPHILS % (AUTO) 1 % (0-10); HEMATOCRIT 42 % (35-52); LYMPHOCYTES # (AUTO) 1.7 10^3/uL (1.0-4.0); LYMPHOCYTES % (AUTO) 11 % (12-44); MEAN CORPUSCULAR HEMOGLOBIN 32 pg (25-34); MEAN CORPUSCULAR HGB CONC 33 g/dL (32-36); MEAN CORPUSCULAR VOLUME 96 fL (80-99); MONOCYTES # (AUTO) 1.7 10^3/uL (0.0-1.0); MONOCYTES % (AUTO) 10 % (0-12); NEUTROPHILS # (AUTO) 12.9 10^3/uL (1.8-7.8); NEUTROPHILS % (AUTO) 78 % (42-75); PLATELET COUNT 357 10^3/uL (130-400); WHITE BLOOD COUNT 16.5 10^3/uL (4.3-11.0)
[2021-04-03] MEDS ORDERED: CLINDAMYCIN 900 MG/50 ML IVPB 50 ML IV ONE (19:45)
[2021-04-03 20:07] LABS: ALBUMIN 3.9 GM/DL (3.2-4.5); BILIRUBIN,TOTAL 0.4 MG/DL (0.1-1.0); CALCIUM 9.3 MG/DL (8.5-10.1); CREATININE SERUM 0.66 MG/DL (0.60-1.30); POTASSIUM 4.1 MMOL/L (3.6-5.0); TOTAL PROTEIN 7.2 GM/DL (6.4-8.2)
[2021-04-03 20:12] LABS: INR 1.1 (0.8-1.4); PROTHROMBIN TIME PATIENT 14.5 SEC (12.2-14.7)
[2021-04-03 20:28] LABS: LYMPHOCYTES % (MANUAL) 19 %; MONOCYTES % (MANUAL) 9 %; NEUTROPHILS % (MANUAL) 72 %; RBC MORPH NORMAL
[2021-04-03] MEDS ORDERED: HOLD METFORMIN - RECEIVED CONTRAST 20 ML VIAL IV SCH (20:30)
[2021-04-03] MEDS ORDERED: IOHEXOL 350 MG/ML 100 ML (OMNIPAQUE 350) VIAL IV ONE (20:30)
[2021-04-03] MEDS ORDERED: NS 100 ML (IVPB) BAG IV ONE (20:30)
--- NOTE | 2021-04-03 20:37 | Diagnostic Imaging Report ---
PROCEDURE: CT maxillofacial with contrast. TECHNIQUE: After intravenous administration of contrast, axial images were obtained through the face and reformatted into coronal and sagittal planes. Auto Exposure Controls were utilized during the CT exam to meet ALARA standards for radiation dose reduction. INDICATION: Upper lip swelling, pain, infection. COMPARISON: None. FINDINGS: There is a 20 x 9 mm low density peripherally enhancing fluid collection inferior to the nasolabial junction of the upper lip at the midline. This is compatible with an abscess. There is no gas formation. Inflammatory change is seen in the surrounding soft tissues. There is no underlying osteomyelitis. The nasal septum demonstrates some chronic deviation. There is some slight mucosal thickening in the paranasal sinuses. The mastoids are clear. IMPRESSION: Upper lip abscess just inferior to the nasolabial junction at the midline. No underlying osteomyelitis identified. Dictated by: Dictated on workstation # [id number]
[2021-04-03] MEDS ORDERED: fentaNYL INJ 100 MCG/2 ML AMP IVP PRN (20:45)
[2021-04-03 21:00] LABS: BILIRUBIN,URINE NEGATIVE (NEGATIVE); CLARITY,URINE CLEAR; COLOR,URINE YELLOW; GLUCOSE, URINE (UA) NEGATIVE (NEGATIVE); KETONES,URINE NEGATIVE (NEGATIVE); LEUKOCYTE ESTERASE ,URINE NEGATIVE (NEGATIVE); NITRITE,URINE NEGATIVE (NEGATIVE); PROTEIN,URINE NEGATIVE (NEGATIVE)
[2021-04-03 21:07] LABS: BACTERIA,URINE NEGATIVE /HPF; RBC,URINE 0-2 /HPF; WBC,URINE 0-2 /HPF
[2021-04-03] MEDS ORDERED: CLIN-144 PO (21:17)
[2021-04-03] MEDS ORDERED: ACHD5005 PO (21:17)
[2021-04-03] MEDS ORDERED: RX-CLINDAMYCIN 150 MG (CLEOCIN) CAP PPK#4 PO STA (21:18)
[2021-04-03 21:49] VITALS: BP 152/88
== END 2021-04-03 21:49 | disposition home or self-care (01) ==
LOC: EDUNIT# 18:13 → ER 18:17
DX: L03.211 Cellulitis of face (principal); L02.01 Cutaneous abscess of face; G40.909 Epilepsy, unspecified, not intractable, without status epilepticus; Z79.899 Other long term (current) drug therapy; Z79.82 Long term (current) use of aspirin
CPT/HCPCS: 10061; 36415; 70487; 80053; 81000; 83605; 85007; 85027; 85610; 85730; 87040; 87088

== ENCOUNTER 2021-04-04 17:47 | Emergency (ER) | payer MEDICARE, MEDICAID ==
[~2021-04-04] VITALS: Ht 157 cm; Wt 72.5 kg
[~2021-04-04 17:47] MED LIST changes: +ACHD5005 PO; +CLIN-144 PO
[2021-04-04] MEDS ORDERED: RX-CLINDAMYCIN 150 MG (CLEOCIN) CAP PPK#4 PO STA (18:07)
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
[2021-04-04 18:29] VITALS: BP 141/89
== END 2021-04-04 18:28 | disposition home or self-care (01) ==
LOC: ER 17:47 → EDUNIT# 17:47 → ER 18:28
DX: Z48.01 Encounter for change or removal of surgical wound dressing (principal); G40.909 Epilepsy, unspecified, not intractable, without status epilepticus; Z79.899 Other long term (current) drug therapy; Z79.82 Long term (current) use of aspirin

== ENCOUNTER 2021-04-06 18:11 | Emergency (ER) | payer MEDICARE, MEDICAID ==
[2021-04-06 19:54] VITALS: BP 118/79
--- NOTE | 2021-04-06 20:03 | ED Suture Removal/Wound Check ---
Suture/Wound Re-check Suture Removal/Wound Recheck : Suture Removal/Wound Recheck: Dry/sterile dressing-appl Progress Here for a wound check, packing fell out the day after we replaced it last time. Cellulitis is markedly improved. (WTAN SILVA APRN) General Appearance: WD/WN, no apparent distress Neuro/Tendon: normal sensation, normal motor functions Skin Exam: normal color, warm/dry (TWAN SILVA APRN) Physical Exam Vital Signs Vital Signs - First Documented 04/06/21 19:54 Temp 36.2 Pulse 70 Resp 18 B/P (MAP) 118/79 Pulse Ox 95 O2 Delivery Room Air (SASCHA GARZA DO) Vital Signs Capillary Refill : (TWAN SILVA APRN) General Appearance: WD/WN, no apparent distress HEENT: PERRL/EOMI Neck: non-tender, full range of motion Respiratory: normal breath sounds, no respiratory distress, no accessory muscle use Extremities: normal range of motion, non-tender Neurologic/Psychiatric: alert, normal mood/affect, oriented x 3 Skin: normal color, warm/dry Skin Problem Location: face Skin Problem Character: abscess, erythema (TWAN SILVA APRN) Departure Impression Primary Impression: Facial cellulitis Disposition: 01 HOME, SELF-CARE Condition: Stable Departure-Patient Inst. Decision time for Depature: 20:02 (TWAN SILVA APRN) Referrals: MARY FISCHER DO (PCP/Family) Primary Care Physician Patient Instructions: Wound Care (DC) ATTENDING PHYSICIAN NOTE: I WAS PHYSICALLY PRESENT ER PHYSICIAN WHEN THIS PATIENT WAS IN ER, BUT I WAS NOT INVOLVED IN ANY DECISION MAKING OR ANY CARE OF THIS PATIENT. (SASCHA GAZRA DO) TWAN SILVA APRN Apr 06, 2021 20:02 SASCHA GARZA DO Apr 08, 2021 03:28
== END 2021-04-06 20:06 | disposition home or self-care (01) ==
LOC: EDUNIT# 18:11 → ER 18:13
DX: L03.211 Cellulitis of face (principal)

== ENCOUNTER → 2021-04-27 | Outpatient (CLI) | payer MEDICARE, MEDICAID ==
[2021-04-27 07:34] LABS: BILIRUBIN,URINE NEGATIVE (NEGATIVE); CLARITY,URINE CLEAR; COLOR,URINE YELLOW; GLUCOSE, URINE (UA) NEGATIVE (NEGATIVE); KETONES,URINE NEGATIVE (NEGATIVE); LEUKOCYTE ESTERASE ,URINE NEGATIVE (NEGATIVE); NITRITE,URINE NEGATIVE (NEGATIVE); PROTEIN,URINE NEGATIVE (NEGATIVE)
[2021-04-27 07:35] LABS: HEMATOCRIT 46 % (35-52); HEMOGLOBIN 15.3 g/dL (11.5-16.0); MEAN CORPUSCULAR HEMOGLOBIN 32 pg (25-34); MEAN CORPUSCULAR HGB CONC 34 g/dL (32-36); MEAN CORPUSCULAR VOLUME 95 fL (80-99); MEAN PLATELET VOLUME 8.7 fL (9.0-12.2); PLATELET COUNT 304 10^3/uL (130-400); WHITE BLOOD COUNT 5.4 10^3/uL (4.3-11.0)
[2021-04-27 07:45] LABS: BACTERIA,URINE NEGATIVE /HPF; RBC,URINE 0-2 /HPF; SQUAMOUS EPITHELIAL CELL,UR 0-2 /HPF
[2021-04-27 07:55] LABS: CALCIUM 9.4 MG/DL (8.5-10.1); CREATININE SERUM 0.69 MG/DL (0.60-1.30); POTASSIUM 4.1 MMOL/L (3.6-5.0)
--- NOTE | 2021-04-27 08:05 | Diagnostic Imaging Report ---
EXAMINATION: Chest 2 view HISTORY: Preop clearance. COMPARISON: 05/11/2015. FINDINGS: The lung volumes are normal. No focal consolidation is seen. No large pleural effusion or pneumothorax is seen. The cardiomediastinal silhouette is normal in size and contour. No acute osseous abnormality is seen. Battery pack is seen overlying the left chest. IMPRESSION: 1. No acute pleuroparenchymal process. Dictated by: Dictated on workstation # [id number]
--- NOTE | 2021-04-27 12:31 | Diagnostic Imaging Report ---
Indication: Routine screening. Comparison is made with prior mammogram from 02/07/2020 and 02/05/2019. 2-D and 3-D bilateral screening mammography was performed with CAD. Both breasts are heterogeneously dense, limiting the sensitivity of mammography. The parenchymal pattern is stable. There are scattered benign parenchymal and vascular calcifications bilaterally. No dominant mass or malignant appearing microcalcifications are seen. Axillae are unremarkable. IMPRESSION: BI-RADS Category 2 No mammographic features suspicious for malignancy are identified. ACR BI-RADS Category 2: Benign findings. Result letter will be mailed to the patient. Note: At least 10% of breast cancer is not imaged by mammography. Dictated by: Dictated on workstation # [id number]
== END ==
LOC: RAD 10:00
PROVIDERS: ATTEND Family Medicine
DX: Z12.31 Encounter for screening mammogram for malignant neoplasm of breast (principal); Z01.818 Encounter for other preprocedural examination
CPT/HCPCS: 36415; 71046; 77063; 77067; 80048; 81000; 85027; 93005

== ENCOUNTER 2021-06-25 18:12 | Emergency (ER) | payer MEDICARE, MEDICAID ==
[~2021-06-25] VITALS: Ht 157.4 cm; Wt 72.5 kg
[2021-06-25 18:22] VITALS: BP 151/70
--- NOTE | 2021-06-25 18:27 | ED Upper Extremity ---
General Stated Complaint: POSS BROKEN ARM Source: patient, family Exam Limitations: no limitations History of Present Illness Date Seen by Provider: Jun 25, 2021 Time Seen by Provider: 18:25 Initial Comments Intellectually challenged female presents to ER by mother with reports of a fall onto an outstretched right arm with subsequent right wrist swelling and pain. Onset: just prior to arrival Severity: moderate Pain/Injury Location: right wrist Method of Injury: fell Modifying Factors: Worse With Movement Allergies and Home Medications Allergies Coded Allergies: divalproex sodium (Verified Allergy, Unknown, NAUSEA, 05/04/15) felbamate (Verified Allergy, Unknown, 12/24/17) topiramate (Verified Allergy, Unknown, 12/24/17) Patient Home Medication List Home Medication List Reviewed: Yes Albuterol Sulfate (Proair Hfa) 8.5 Gm Hfa.aer.ad, 2 PUFF IH Q6H PRN for SHORTNESS OF BREATH Prescribed by: ZEYNEP CUMMINGS on 05/04/152123 Aspirin (Aspirin EC) 325 Mg Tablet.dr, 325 MG PO BID Prescribed by: LYLE RODRIGUEZ on 12/24/17 1317 Clindamycin HCl (Clindamycin HCl) 300 Mg Capsule, 300 MG PO QID Prescribed by: TWAN SILVA on 04/03/212116 Clobazam (Onfi) 20 Mg Tablet, 20 MG PO 0700, (Reported) Entered as Reported by: ZEB JOE on 12/24/17 045 Clobazam (Onfi) 20 Mg Tablet, 20 MG PO HS, (Reported) Entered as Reported by: ZEB JOE on 12/24/17 045 Cyanocobalamin (Vitamin B-12) (Vitamin B12) 2,500 Mcg Tablet, 2,500 MCG PO DAILY, (Reported) Entered as Reported by: ZEB JOE on 12/24/17 045 Eslicarbazepine Acetate (Aptiom) 400 Mg Tablet, 400 MG PO HS, (Reported) Entered as Reported by: ZEB JOE on 12/24/17 045 Fish Oil/Dha/Epa (Fish Oil 1,200 mg Fish Oil) 1 Each Capsule, 1 EACH PO DAILY, (Reported) Entered as Reported by: ZEB JOE on 12/24/17 045 Hydrocodone Bit/Acetaminophen (HYDROcodone/APAP 10/325 TABLET) 1 Each Tablet, 1 EA PO Q4H PRN for PAIN-MODERATE Prescribed by: LYLE RODRIGUEZ on 12/24/17 1317 Hydrocodone/Acetaminophen (Hydrocodone-Acetamin 5-325 mg) 1 Each Tablet, 1 TAB PO Q4H PRN for PAIN-MODERATE (5-7) Prescribed by: TWAN SILVA on 04/03/21 2117 Lorazepam (Lorazepam) 1 Mg Tablet, 1 MG PO PRN, (Reported) Entered as Reported by: RADHA RODRIGUES on 11/23/14 1737 Magnesium Oxide (Magnesium) 250 Mg Tablet, 250 MG PO DAILY, (Reported) Entered as Reported by: ZEB JOE on 12/24/17 4215 Review of Systems Constitutional: see HPI EENTM: see HPI Respiratory: no symptoms reported Cardiovascular: no symptoms reported Genitourinary: no symptoms reported Musculoskeletal: see HPI Skin: no symptoms reported Psychiatric/Neurological: No Symptoms Reported Past Fwmtvfx-Krlmcj-Srjttv Hx Immunizations Up To Date Tetanus Booster (TDap): Less than 5yrs Seasonal Allergies Seasonal Allergies: No Past Medical History Surgery/Hospitalization HX: SEIZURE HX Surgeries: Yes Breast, Neurological, Orthopedic Respiratory: No Cardiac: No Neurological: Yes (MR) Developmental Disorder, Seizure Disorder Reproductive Disorders: No 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 0.0oz. 68.978894sg; 29.00 BMI Method:Stated General Appearance: WD/WN, no apparent distress HEENT: PERRL/EOMI, normal ENT inspection Neck: non-tender, full range of motion Respiratory: no respiratory distress, no accessory muscle use Shoulder: normal inspection, non-tender Elbow/Forearm: normal inspection, non-tender Hand: Right, deformity, limited ROM, soft tissue tenderness, swelling Neurologic/Psychiatric: alert, normal mood/affect, oriented x 3 Skin: normal color, warm/dry Able to make a fist and extend all of her fingers. Normal sensation at the fingertips. Progress/Results/Core Measures Results/Orders My Orders Orders - TWAN SILVA APRN Wrist, Right, 3 Views Or More (06/25/21 18:23) Vital Signs/I&O 06/25/21 18:22 Temp 36.7 Pulse 82 Resp 20 B/P (MAP) 151/70 (97) Pulse Ox 93 Departure Communication (Admissions) No fracture seen on x-ray. Neurovascularly intact at the fingertips. Will place in a splint given the circumferential swelling and have follow up with PCP. Impression Primary Impression: Occult right wrist fracture Disposition: 01 HOME, SELF-CARE Condition: Stable Departure-Patient Inst. Decision time for Depature: 18:34 Referrals: MARY FISCHER DO (PCP/Family) Primary Care Physician SRAVANI GALO MD, TERRY D MD ZAFUTA, MICHAEL P MD Patient Instructions: Common Wrist Injuries Add. Discharge Instructions: 1. Keep this elevated. Tylenol and ibuprofen for pain control. Ice pack to the area for 30 minutes every couple of hours for a few days. Follow-up with primary care or orthopedics next week for reevaluation. Return to ER for any worsening. TWAN SILVA APRN Jun 25, 2021 18:27
--- NOTE | 2021-06-25 18:43 | Diagnostic Imaging Report ---
INDICATION: Right wrist pain. FINDINGS: Alignment of the wrist appears appropriate. There is no convincing evidence of an acute distal radial ulnar fracture. There does appear to be radiocarpal joint space loss. There is widening of the scapholunate interval compatible to prior scapholunate ligament injury of indeterminate age. There are advanced arthritic changes at the 1st carpometacarpal joint. There does appear to be diffuse right wrist soft tissue swelling. IMPRESSION: Diffuse right wrist soft tissue swelling without convincing plain film evidence of an acute distal radial or ulnar fracture. There is radiocarpal joint space loss and arthritic changes at the 1st carpometacarpal joint. There is widening of the scaphoid lunate ligament compatible with scapholunate ligament tear. Dictated by: Dictated on workstation # [id number]
== END 2021-06-25 18:49 | disposition home or self-care (01) ==
LOC: EDUNIT# 18:12 → ER 18:17
DX: S62.101A Fracture of unspecified carpal bone, right wrist, initial encounter for closed fracture (principal); W18.30XA Fall on same level, unspecified, initial encounter
CPT/HCPCS: 73110

== ENCOUNTER → 2021-07-09 | Outpatient (CLI) | payer MEDICARE, MEDICAID ==
--- NOTE | 2021-07-09 11:22 | Diagnostic Imaging Report ---
Indication: Right wrist injury from a fall Comparison made to a previous day dated 06/25/2021. 3 views of the right wrist show slight widening of the scapholunate joint space. There is no acute fracture or dislocation seen. IMPRESSION: Stable appearing right wrist since 06/25/2021. There continues to be slight widening of the scapholunate joint space. Dictated by: Dictated on workstation # [id number]
== END ==
LOC: RAD 08:31
PROVIDERS: ATTEND Family Medicine
DX: S69.91XA Unspecified injury of right wrist, hand and finger(s), initial encounter (principal); W19.XXXA Unspecified fall, initial encounter
CPT/HCPCS: 73110

== ENCOUNTER 2021-12-02 13:24 | Emergency (ER) | payer MEDICARE, MEDICAID ==
[~2021-12-02] VITALS: Ht 157 cm; Wt 72.5 kg
--- NOTE | 2021-12-02 14:06 | ED Upper Extremity ---
General Chief Complaint: Upper Extremity Stated Complaint: BROKEN FINGERS ON RT HAND Source: patient, family Exam Limitations: no limitations, physical impairment History of Present Illness Date Seen by Provider: Dec 02, 2021 Time Seen by Provider: 14:00 Initial Comments Family reports that she fell prior to arrival and has right 5th digit pain and swelling. Family is concerned that she broke her finger. Denies LOC or any other injuries. Onset: just prior to arrival Severity: moderate Pain/Injury Location: right 5th finger Method of Injury: fell Modifying Factors: Improves With Immobilization; Worse With Movement; Improves With Rest Allergies and Home Medications Allergies Coded Allergies: divalproex sodium (Verified Allergy, Unknown, NAUSEA, 12/02/21) felbamate (Verified Allergy, Unknown, 12/02/21) topiramate (Verified Allergy, Unknown, 12/02/21) Patient Home Medication List Home Medication List Reviewed: Yes Albuterol Sulfate (Proair Hfa) 8.5 Gm Hfa.aer.ad, 2 PUFF IH Q6H PRN for SHORTNESS OF BREATH Prescribed by: ZEYNEP CUMMINGS on 05/04/152123 Aspirin (Aspirin EC) 325 Mg Tablet.dr, 325 MG PO BID Prescribed by: LYLE RODRIGUEZ on 12/24/17 1317 Clindamycin HCl (Clindamycin HCl) 300 Mg Capsule, 300 MG PO QID Prescribed by: TWAN SILVA on 04/03/212116 Clobazam (Onfi) 20 Mg Tablet, 20 MG PO 0700, (Reported) Entered as Reported by: ZEB JOE on 12/24/17 045 Clobazam (Onfi) 20 Mg Tablet, 20 MG PO HS, (Reported) Entered as Reported by: ZEB JOE on 12/24/17 045 Cyanocobalamin (Vitamin B-12) (Vitamin B12) 2,500 Mcg Tablet, 2,500 MCG PO DAILY, (Reported) Entered as Reported by: ZEB JOE on 12/24/17 045 Eslicarbazepine Acetate (Aptiom) 400 Mg Tablet, 400 MG PO HS, (Reported) Entered as Reported by: ZEB JOE on 12/24/17 045 Fish Oil/Dha/Epa (Fish Oil 1,200 mg Fish Oil) 1 Each Capsule, 1 EACH PO DAILY, (Reported) Entered as Reported by: ZEB JOE on 12/24/17 0455 Hydrocodone Bit/Acetaminophen (HYDROcodone/APAP 10/325 TABLET) 1 Each Tablet, 1 EA PO Q4H PRN for PAIN-MODERATE Prescribed by: LYLE RODRIGUEZ on 12/24/17 1317 Hydrocodone Bit/Acetaminophen (HYDROcodone/APAP 5 MG/325 MG TAB) 1 Tab Tab, 1 TAB PO Q6H PRN for PAIN-MODERATE (5-7) Prescribed by: Armida Dexter on 12/02/21 1529 Hydrocodone/Acetaminophen (Hydrocodone-Acetamin 5-325 mg) 1 Each Tablet, 1 TAB PO Q4H PRN for PAIN-MODERATE (5-7) Prescribed by: TWAN SILVA on 04/03/21 2117 Lorazepam (Lorazepam) 1 Mg Tablet, 1 MG PO PRN, (Reported) Entered as Reported by: RADHA RODRIGUES on 11/23/14 1737 Magnesium Oxide (Magnesium) 250 Mg Tablet, 250 MG PO DAILY, (Reported) Entered as Reported by: ZEB JOE on 12/24/17 0455 Review of Systems Constitutional: see HPI Respiratory: no symptoms reported Cardiovascular: no symptoms reported Musculoskeletal: joint pain (right 5th digit), joint swelling (right 5th digit) All Other Systems Reviewed Negative Unless Noted: Yes Past Icxzvef-Exjqcc-Gtbibx Hx Patient Social History Tobacco Use?: No Substance use?: No Immunizations Up To Date Tetanus Booster (TDap): Less than 5yrs Seasonal Allergies Seasonal Allergies: No Past Medical History Surgery/Hospitalization HX: SEIZURE HX Surgeries: Yes Breast, Neurological, Orthopedic Respiratory: No Cardiac: No Neurological: Yes (MR) Developmental Disorder, Seizure Disorder Reproductive Disorders: No 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 0.0oz. 68.977151fq; 29.00 BMI Method:Stated General Appearance: WD/WN, no apparent distress Wrist: Yes normal inspection, Yes non-tender, Yes no evidence of injury Hand: Right, bone tenderness (proximal right 5th digit), ecchymosis (right proximal 4th and 5th digits), limited ROM (right 5th digit), swelling (right 5th digit proximally) Neurologic/Tendon: normal sensation Neurologic/Psychiatric: alert, normal mood/affect, oriented x 3 Progress/Results/Core Measures Results/Orders My Orders Orders - ARMIDA DEXTER APRN Hand, Right, 3 Views (12/02/21 14:06) Hydrocodone/Apap 5/325 Tablet (Lortab 5 (12/02/21 14:45) Medications Given in ED Current Medications Medications Dose Ordered Sig/Amilcar Route Start Time Stop Time Status Last Admin Dose Admin Acetaminophen/ Hydrocodone Bitart 1 ea ONCE ONCE PO 12/02/21 14:45 12/02/21 14:46 DC 12/02/21 14:45 1 EA Vital Signs/I&O 12/02/21 13:40 Temp 37.0 Pulse 85 Resp 18 B/P (MAP) 129/75 (93) Pulse Ox 95 O2 Delivery Room Air Progress Progress Note : Time: 15:25 Progress Note Patient with nondisplaced fracture to proximal right 5th digit. Has moderate amount of swelling to joint along with bruising. Will place in finger splint. Attempted to la tape fingers together with splint, but that was too painful for patient. Unwrapped them and left pinky finger with splint applied and she was able to tolerate that. Was given Hydrocodone while she was here in the emergency room. Pain was under control when she left the department. Instructed to follow up with Orthopedics and to keep the splint in place until follow up with Orthopedics. Reasons to return to the ER were discussed with patient and family. Departure Impression Primary Impression: Finger fracture, right Qualified Codes: S62.646A - Nondisplaced fracture of proximal phalanx of right little finger, initial encounter for closed fracture Disposition: HOME, SELF-CARE Condition: Stable Departure-Patient Inst. Decision time for Depature: 15:25 Referrals: MARY FISCHER DO (PCP/Family) Primary Care Physician SRAVANI COTA MD Patient Instructions: Finger Fracture ED Add. Discharge Instructions: All discharge instructions reviewed with patient and/or family. Voiced understanding. 1. Home and rest. 2. Alternate Tylenol/Ibuprofen as needed for pain. 3. Ice and elevate. 4. Follow up with PCP as needed. 5. Follow up with Dr. Cota with orthopedics. Leave splint in place until follow up. 6. Hydrocodone as needed for severe pain. This medication can cause constipation so consider taking a stool softner while on this medication. NO driving while taking this medication. 7. Return here if worse or concerns. Scripts Hydrocodone Bit/Acetaminophen (HYDROcodone/APAP 5 MG/325 MG TAB) 1 Tab Tab 1 TAB PO Q6H PRN for PAIN-MODERATE (5-7), #20 TAB 0 Refills Prov: ARMIDA DEXTER APRN 12/02/21 ARMIDA DEXTER APRN Dec 02, 2021 14:06
[2021-12-02] MEDS ORDERED: HYDROcodone/APAP 5 MG/325 MG (LORTAB) TAB PO ONE (14:45)
--- NOTE | 2021-12-02 14:52 | Diagnostic Imaging Report ---
INDICATION: Injury to right hand. AP, oblique, and lateral views of the right hand are obtained. FINDINGS: There are diffuse degenerative changes throughout the interphalangeal joints and radiocarpal joint and first carpometacarpal joint. There is an acute nondisplaced fracture of the base of the fifth proximal phalanx. No other acute finding is seen. IMPRESSION: Acute nondisplaced fracture of base of the fifth proximal phalanx. Underlying diffuse degenerative changes. Dictated by: Dictated on workstation # [id number]
[2021-12-02] MEDS ORDERED: ACHD5005 PO (15:28)
[2021-12-02 15:45] VITALS: BP 131/78
== END 2021-12-02 15:45 | disposition home or self-care (01) ==
LOC: EDUNIT# 13:24 → ER 13:27
DX: S62.646A Nondisplaced fracture of proximal phalanx of right little finger, initial encounter for closed fracture (principal); Z28.310 Unvaccinated for COVID-19; W19.XXXA Unspecified fall, initial encounter
CPT/HCPCS: 26725; 29130; 73130

== ENCOUNTER → 2021-12-08 | Outpatient (CLI) | payer MEDICARE, MEDICAID | LOC: ORTHO 14:56 | PROVIDERS: ATTEND Orthopaedic Surgery | DX: S62.616A Displaced fracture of proximal phalanx of right little finger, initial encounter for closed fracture (principal); X58.XXXA Exposure to other specified factors, initial encounter | CPT/HCPCS: 99202 ==

== ENCOUNTER → 2021-12-28 | Outpatient (CLI) | payer MEDICARE, MEDICAID ==
--- NOTE | 2021-12-28 09:30 | Diagnostic Imaging Report ---
Indication: Right hand fracture follow-up AP, oblique, lateral views right hand are obtained and compared with 12/02/2021 Fracture of the base of the 5th proximal phalanx appears in stable alignment with signs of ongoing healing. Diffuse degenerative changes throughout the interphalangeal joints are again noted. There is degenerative change of the radiocarpal joint and 1st carpal metacarpal joint. IMPRESSION: Well aligned healing fracture of 5th proximal phalanx. Underlying degenerative findings. Dictated by: Dictated on workstation # [id number]
== END ==
LOC: ORTHO 08:04
PROVIDERS: ATTEND Orthopaedic Surgery
DX: S62.91XD Unspecified fracture of right hand, subsequent encounter for fracture with routine healing (principal); X58.XXXD Exposure to other specified factors, subsequent encounter
CPT/HCPCS: 73130; G0463; 99213

== ENCOUNTER → 2022-01-27 | Outpatient (CLI) | payer MEDICARE, MEDICAID ==
[~2022-01-27] MED LIST changes: +ALBU8.5H6; +ALBU8.5H6 IH; -RT-ALBUINH; -RT-ALBUINH IH
--- NOTE | 2022-01-27 09:35 | Diagnostic Imaging Report ---
INDICATION: Right hand fracture follow-up AP, oblique, lateral views right hand were obtained. COMPARISON: 12/28/2021 Compared to the prior study, the fracture of the base of the 5th proximal phalanx appears unchanged in alignment. Remaining structures show no acute finding, there are mild degenerative changes in the radial carpal joint and 1st carpal metacarpal joint and throughout the interphalangeal joints. IMPRESSION: Stable alignment of healing fracture of 5th proximal phalanx. Underlying degenerative findings. Dictated by: Dictated on workstation # [id number]
== END ==
LOC: ORTHO 08:13
PROVIDERS: ATTEND Orthopaedic Surgery
DX: Z47.89 Encounter for other orthopedic aftercare (principal); S62.616D Displaced fracture of proximal phalanx of right little finger, subsequent encounter for fracture with routine healing; X58.XXXD Exposure to other specified factors, subsequent encounter
CPT/HCPCS: 73130; G0463; 99213

== ENCOUNTER 2022-02-03 16:02 | Emergency (ER) | payer MEDICARE, MEDICAID ==
[~2022-02-03] VITALS: Ht 157 cm; Wt 72.0 kg
[2022-02-03 16:09] VITALS: BP 119/79
== END 2022-02-03 18:21 | disposition left against medical advice (07) ==
LOC: EDUNIT# 16:02 → ER 16:04
DX: R22.0 Localized swelling, mass and lump, head (principal); Z28.310 Unvaccinated for COVID-19
CPT/HCPCS: 99282

== ENCOUNTER → 2022-05-10 | Outpatient (CLI) | payer OTHER, MEDICAID ==
--- NOTE | 2022-05-10 10:28 | Diagnostic Imaging Report ---
INDICATION: Routine screening. COMPARISON: 04/27/2021 and 02/07/2020. TECHNIQUE: 2D and 3D bilateral screening mammography was performed with CAD. FINDINGS: Both breasts are heterogeneously dense, limiting the sensitivity of mammography. The overall parenchymal pattern is stable. No mass or malignant-appearing microcalcifications are seen. The axillae are unremarkable. There are scattered benign parenchymal and vascular calcifications noted. IMPRESSION: No mammographic features suspicious for malignancy are identified. ACR BI-RADS Category 2: Benign findings. Result letter will be mailed to the patient. Note: At least 10% of breast cancer is not imaged by mammography. Dictated by: Dictated on workstation # [id number]
== END ==
LOC: RAD 08:30
PROVIDERS: ATTEND Family Medicine
DX: Z12.31 Encounter for screening mammogram for malignant neoplasm of breast (principal)
CPT/HCPCS: 77063; 77067